=== PATIENT | male | born 1995 | race Caucasian/White ===

== ENCOUNTER 2019-03-28 10:38 | Inpatient (IN) | payer BC ==
[~2019-03-28] VITALS: Ht 182.9 cm; Wt 64.0 kg
[2019-03-28] MEDS ORDERED: IV NS 0.9% 1,000 ML BAG IV ONE (11:30)
--- NOTE | 2019-03-28 11:45 | NUR ---
GENERALIZED BODY ACHE/FEVER/FATIGUE/HEADACHE/LOW BACK PAINX 3 DAYS AFTER COMING BACK FROM [facility]. PT AAOX4, VSS. DENIES CP, SOB, DIZZINESS, N/V/D AT THIS TIME. PT SEEN & EVAL'D BY DR. PROCTOR & WILL CONT TO MONITOR.
[2019-03-28 11:48] LABS: BASOPHILS % (AUTO) 0.3 % (0.0-2.0); HEMATOCRIT 47 % (39-51); HEMOGLOBIN 16.1 g/dL (13.5-17.5); LYMPHOCYTES # (AUTO) 0.6 /CMM (0.8-4.8); LYMPHOCYTES % (AUTO) 7.4 % (20.0-44.0); MEAN CORPUSCULAR HGB CONC 35 g/dl (31.0-36.0); MEAN CORPUSCULAR VOLUME 92 fL (80-96); MONOCYTES # (AUTO) 0.9 /CMM (0.1-1.30); MONOCYTES % (AUTO) 11.2 % (2.0-12.0); NEUTROPHILS # (AUTO) 6.8 /CMM (1.8-8.9); NEUTROPHILS % (AUTO) 81.1 % (43.0-81.0); PLATELET COUNT (AUTO) 141 /CMM (150-450); RED BLOOD CELL COUNT(AUTO) 5.03 MIL/uL (4.5-6.0); WHITE BLOOD COUNT (AUTO) 8.4 K/uL (4.3-11.0)
[2019-03-28 11:55] LABS: CALCIUM, SERUM 8.5 mg/dL (8.5-10.1); CREATININE 1.6 mg/dL (0.6-1.3)
[2019-03-28 12:01] LABS: ALBUMIN 3.6 g/dL (3.4-5.0); BILIRUBIN,DIRECT 0.3 mg/dL (0.0-0.2); BILIRUBIN,TOTAL 2.4 mg/dL (0.2-1.0); TOTAL PROTEIN, SERUM 7.5 g/dL (6.4-8.2)
[2019-03-28] MEDS ORDERED: IBUPROFEN 600 MG TABLET PO ONE ×2 (12:30→12:33)
[2019-03-28] MEDS ORDERED: ACETAMINOPHEN ES 500 MG TABLET PO ONE (12:30)
[2019-03-28] MEDS ORDERED: ACETAMINOPHEN ES 500 MG TABLET ONE (12:33)
--- NOTE | 2019-03-28 12:47 | NUR ---
BED 316-1
--- NOTE | 2019-03-28 13:04 | NUR ---
REPORT GIVEN TO SANDEEP LLOYD FOR CONT OF CARE.
[2019-03-28] MEDS ORDERED: IV NS 0.9% 1,000 ML IV PRN (13:37)
[2019-03-28] MEDS ORDERED: Z GUARD REMEDY 2 OZ OINT TP PRN ×2 (14:00→14:15)
[2019-03-28] MEDS ORDERED: MAG HYDROX/AL HYDROX/SIMETH 30 ML UDC PO PRN ×2 (14:00→14:15)
[2019-03-28] MEDS ORDERED: ACETAMINOPHEN 325 MG TABLET PO PRN (14:00)
[2019-03-28] MEDS ORDERED: MAGNESIUM HYDROXIDE 30 ML UDC PO PRN ×2 (14:00→14:15)
[2019-03-28] MEDS ORDERED: HYDROCODONE/APAP 5/325MG 1 EACH TABLET PO PRN ×2 (14:00→14:15)
[2019-03-28] MEDS ORDERED: ONDANSETRON HCL/PF 4 MG/2 ML VIAL IVP PRN ×2 (14:00→14:15)
--- NOTE | 2019-03-28 14:35 | NUR ---
MS RN NOTES PATIENT ARRIVED UNIT VIA [facility], REPORT RECEIVED FROM JEANMARIE HOPKINS. PATIENT AWAKE, ALERT AND ORIENTED X 4, NO ACUTE DISTRESS. NO C/O PAIN OR DISCOMFORT. PATIENT CALM AND RELAXED. NO CHANGES IN LOC NOTED AT THIS TIME. PATIENT ADMITTED UNDER MEDICAL SUPERVISION OF NAKUL PAEZ NP, AWARE OF PATIENT ARRIVAL. PATIENT ORIENTED TO UNIT, ROOM, STAFF, MEAL TIMES, MENU SYSTEM, PLAN OF CARE AND VERBALIZED UNDERSTANDING. PATIENT AMBULATORY. WILL CONTINUE TO MONITOR. BED LOCKED AND IN LOW POSITION. BILATERAL UPPER SIDE RAILS UP AND LOCKED. CALL LIGHT WITHIN EASY REACH
--- NOTE | 2019-03-28 14:49 | NUR ---
MS RN NOTES US TECH AT BEDSIDE
[2019-03-28] MEDS ORDERED: FEE PK DOSING 1 MIN EA MC ONE (14:59)
[2019-03-28] MEDS ORDERED: PIPERACILLIN /TAZOBACTAM 3.375 G in IV D5W 50 ML IV ONE (15:00)
[2019-03-28] MEDS: IV NS 0.9% 1,000 ML IV PRN (15:55)
[2019-03-28 16:00] VITALS: BP 99/46
[2019-03-28] MEDS ORDERED: VANCOMYCIN 1.5 GM in IV D5W 500 ML IV ONE (16:00)
[2019-03-28] MEDS ORDERED: DOCUSATE SODIUM 100 MG CAPSULE PO SCH (17:00)
[2019-03-28] MEDS: DOCUSATE SODIUM 100 MG CAPSULE PO SCH (17:40)
[2019-03-28 17:47] LABS: APPEARANCE,URINE CLEAR (CLEAR); BILIRUBIN,URINE NEGATIVE (NEGATIVE); BLOOD, URINE NEGATIVE Ery/uL (NEGATIVE); COLOR,URINE ORANGE (YELLOW); KETONES,URINE 1+ (NEGATIVE); LEUKOCYTE ESTERASE ,URINE NEGATIVE (NEGATIVE); NITRITE, URINE NEGATIVE (NEGATIVE); PROTEIN,URINE NEGATIVE (NEGATIVE); UGLUCOSE NEGATIVE (NEGATIVE)
[2019-03-28] MEDS ORDERED: PIPERACILLIN /TAZOBACTAM 3.375 G in IV D5W 50 ML IV SCH ×4 (18:00)
[2019-03-28 18:01] LABS: BACTERIA,URINE None seen /HPF (None Seen); RBC,URINE 0-2 /HPF (0-2); SQUAMOUS EPITHELIAL CELL,UR 0-2 /HPF (None Seen); WBC,URINE 0-2 /HPF (0-3)
--- NOTE | 2019-03-28 18:17 | NUR ---
MS RN NOTES VERIFIED DIET ORDER WITH NAKUL PAEZ NP. GAVE OK FOR PATIENT TO START REGULAR DIET. ORDER NOTED AND CARRIED OUT. DIETARY MADE AWARE. PATIENT MADE AWARE AND VERBALIZED UNDERSTANDING. WILL CONTINUE TO MONITOR
[2019-03-28] MEDS: ACETAMINOPHEN 325 MG TABLET PO PRN (19:03)
--- NOTE | 2019-03-28 19:11 | NUR ---
MS RN NOTES PATIENT NOTED WITH EPISODE OF CHILLS X 1. NO CHANGES IN LOC NOTED. PATIENT CALM AND RELAXED. TEMP TAKEN WITH RESULT OF 98.0 ORAL. NAKUL PAEZ NP MADE AWARE. NO NEW ORDERS GIVEN AT THIS TIME. WILL CONTINUE TO MONITOR
--- NOTE | 2019-03-28 19:13 | NUR ---
MS NOTES PATIENT RESTING INSIDE ROOM. AWAKE, ALERT AND ORIENTED X 4, NO ACUTE DISTRESS. NO C/O PAIN. PATIENT KEPT CLEAN, DRY AND COMFORTABLE. PROVIDED WITH CALM, SAFE, HAZARD-FREE ENVIRONMENT. WILL ENDORSE TO INCOMING SHIFT FOR DOLORES. BED LOCKED AND IN LOW POSITION. BILATERAL UPPER SIDE RAILS UP AND LOCKED. CALL LIGHT WITHIN EASY REACH
--- NOTE | 2019-03-28 19:35 | NUR ---
MS RN RECEIVE PT IN BED A/O X 3, STABLE, RESPIRATIONS EVEN AND UNLABORED, SAFETY MEASURES IN PLACE. WILL CONTINUE TO MONITOR
[2019-03-28 20:00] VITALS: BP 129/62
--- NOTE | 2019-03-28 20:00 | NUR ---
NOTED TEMPERATURE OF 101.0 COOLING MEASURES PROVIDED WILL CONT TO MONITOR
[2019-03-28] MEDS ORDERED: PIPERACILLIN /TAZOBACTAM 3.375 G in IV D5W 100 ML IV SCH (22:00)
[2019-03-29] MEDS: IV NS 0.9% 1,000 ML IV PRN ×3 (01:08→19:35)
[2019-03-29] MEDS: ACETAMINOPHEN 325 MG TABLET PO PRN ×3 (01:09→23:32)
[2019-03-29] MEDS ORDERED: VANCOMYCIN 1.25 GM in IV D5W 500 ML IV SCH (02:00)
--- NOTE | 2019-03-29 06:33 | NUR ---
MS RN ASLEEP AND EASILY AWAKEN, RESPIRATIONS EVEN AND UNLABORED. STABLE, SLEPT WELL THROUGHOUT THE NIGHT. KEPT CLEAN AND DRY AND COMFORTABLE. NEEDS ATTENDED AND ANTICIPATED. NURSING CARE RENDERED, SAFETY MEASURES AT ALL TIMES. ENDORSE TO THE NEXT SHIFT.
--- NOTE | 2019-03-29 06:36 | NUR ---
TEMPERATURE 97.4 AT THIS TIME
--- NOTE | 2019-03-29 07:17 | NUR ---
MS RN OPENING NOTES RECEIVED PATIENT IN BED RESTING, BREATHING ON ROOM AIR. BREATHING IS EVEN AND UNLABORED. PATIENT IN NO ACUTE DISTRESS. NO SOB NOTED. PATIENT COMPLAINS OF NO PAIN AT THIS TIME. PATIENT ABLE TO VERBALIZE CONCERNS. PATIENTS BROTHER AT THE BEDSIDE. PATIENT BED IS LOCKED AND IN LOWEST POSITION. CALL LIGHT WITHIN REACH. WILL CONTINUE TO MONITOR.
[2019-03-29] MEDS ORDERED: PANTOPRAZOLE 40 MG TABLET.DR PO SCH (07:30)
[2019-03-29] MEDS: PANTOPRAZOLE 40 MG TABLET.DR PO SCH (07:52)
[2019-03-29 08:00] VITALS: BP 99/55
[2019-03-29] MEDS: DOCUSATE SODIUM 100 MG CAPSULE PO SCH ×2 (08:00→16:54)
[2019-03-29] MEDS ORDERED: IV NS 0.9% 1,000 ML IV STA (10:51)
[2019-03-29 11:06] LABS: BASOPHILS % (AUTO) 0.3 % (0.0-2.0); EOSINOPHILS % (AUTO) 0.3 % (0.0-6.0); HEMATOCRIT 40 % (39-51); HEMOGLOBIN 13.8 g/dL (13.5-17.5); LYMPHOCYTES # (AUTO) 0.3 /CMM (0.8-4.8); LYMPHOCYTES % (AUTO) 5.6 % (20.0-44.0); MEAN CORPUSCULAR HGB CONC 34 g/dl (31.0-36.0); MEAN CORPUSCULAR VOLUME 92 fL (80-96); MONOCYTES # (AUTO) 0.4 /CMM (0.1-1.30); MONOCYTES % (AUTO) 7.7 % (2.0-12.0); NEUTROPHILS # (AUTO) 4.9 /CMM (1.8-8.9); NEUTROPHILS % (AUTO) 86.1 % (43.0-81.0); PLATELET COUNT (AUTO) 101 /CMM (150-450); RED BLOOD CELL COUNT(AUTO) 4.37 MIL/uL (4.5-6.0); WHITE BLOOD COUNT (AUTO) 5.7 K/uL (4.3-11.0)
[2019-03-29 11:17] LABS: CALCIUM, SERUM 7.8 mg/dL (8.5-10.1); CARBON DIOXIDE 29 mmol/L (21-32); CHLORIDE 105 mmol/L (98-107); CREATININE 1.6 mg/dL (0.6-1.3); GLUCOSE 104 mg/dL (74-106); POTASSIUM 4.1 mmol/L (3.5-5.1); SODIUM SERUM 140 mmol/L (136-145); UREA NITROGEN, BLOOD 14 mg/dL (7-18)
[2019-03-29 11:22] LABS: ALANINE AMINOTRANSFERASE 23 U/L (12-78); ALBUMIN 2.7 g/dL (3.4-5.0); ALKALINE PHOSPHATASE 39 U/L (46-116); ASPARTATE AMINOTRANSFERASE 17 U/L (15-37); BILIRUBIN,TOTAL 1.7 mg/dL (0.2-1.0); PHOSPHORUS 3.3 mg/dL (2.5-4.9); TOTAL PROTEIN, SERUM 5.9 g/dL (6.4-8.2)
[2019-03-29] MEDS: AZITHROMYCIN 250 MG TABLET PO SCH (11:22)
[2019-03-29 11:25] LABS: BILIRUBIN,DIRECT 0.3 mg/dL (0.0-0.2); BILIRUBIN,TOTAL 1.7 mg/dL (0.2-1.0)
[2019-03-29 11:30] LABS: CHOLESTEROL 87 mg/dL (<200); HDL CHOLESTEROL 30 mg/dL (40-60); LDL 47 mg/dL (0-99); THYROID STIMULATING HORMONE 1.474 uIU/mL (0.358-3.74); TRIGLYCERIDES 56 mg/dL (30-150)
--- NOTE | 2019-03-29 12:00 | NUR ---
MS RN NOTE PATIENT LAB LEVEL REPORTED LACTIC ACID 2.5. NAKUL PAEZ PETROGRAPHY TEACHER MADE AWARE. WILL FOLLOW UP WITH NEW ORDERS. PATIENT RECEIVING IV NS 0.9% FLUIDS. PATIENT IN NO ACUTE DISTRESS. WILL CONTINUE TO MONITOR.
--- NOTE | 2019-03-29 14:00 | NUR ---
MS RN NOTE PATIENT LACTIC ACID IS 1.8. MD MADE AWARE. PATIENT IN NO ACUTE DISTRESS. WILL CONTINUE TO MONITOR.
[2019-03-29 16:00] VITALS: BP 110/60
--- NOTE | 2019-03-29 18:55 | NUR ---
MS RN CLOSING NOTE PATIENT IN BED RESTING. PATIENT IN NO ACUTE DISTRESS. PATIENT BREATHING ON ROOM AIR. NO SOB NOTED. PATIENT BREATHING EVEN AND UNLABORED. PATIENT COMPLAINS OF NO PAIN AT THIS TIME. IV INTACT, PATIENT CONTINUED ON IV NS 0.9% FLUIDS. PATIENT ABLE TO VERBALIZE NEEDS AND CONCERNS. PATIENT NEEDS ADDRESSED. ALL NURSING NEEDS MET. PATIENT KEPT CLEAN, DRY, AND COMFORTABLE. PATIENT BED LOCKED AND IN LOWEST POSITION. CALL LIGHT WITHIN REACH. WILL ENDORSE CARE TO PM SHIFT FOR DOLORES.
--- NOTE | 2019-03-29 18:57 | NUR ---
RN opening notes Received Pt from morning nurse. Pt is alert and oriented X4. Pt is laying in bed comfortably watching TV. Pt's family at the bedside. Respiration is normal. NO SOB. No nausea or vomiting. Pt denies any pain or discomfort at this time. Pt has 2 IV sites: RAC# 20g is clean, intact and patent, SL and LFA #20g is clean, intact, patent and infusing well NS @ 150ml/hr. Safety precautions is maintained. Instructed Pt to eat as tolerated. Instructed Pt to call for assistance. Bed at low position, brakes on, bedside rails upX2 and call light is within reach. Will continue to monitor and assist all needs.
[2019-03-29 20:00] VITALS: BP 106/59
[2019-03-29 20:18] VITALS: BP 106/59
--- NOTE | 2019-03-30 | NUR ---
RN medsurg notes Pt is sleeping in bed comfortably. Awaken easily. NO SOB. No S/S of distress noted. Pt's mom at the bed side. Instructed to call fo assistance. Will continue to monitor.
[2019-03-30 05:47] VITALS: BP 105/56
--- NOTE | 2019-03-30 05:49 | NUR ---
policy loan calculator notes Pt is alert and oriented X4. Pt is sitting in bed comfortably. Discussed and informed Pt's mother about POC. Pt's mother states "I want to move my son to different hospital and nothing has been done here." Explained to Pt's mother about Pt's condition, labs, meds and POC. Pt is complaining of headache. Pt's mom and Pt refused to receive medications for headache. Informed Pt's about benefits of taking medication and side effects. Pt and Pt's mom verbalize understanding and still refusing. VS as follows: BP 105/56, PULSE 63, RESP 18, TEMP 98.9, O2 SAT 99%. Will continue to monitor. Addendum: 03/30/19 at 0718 by SHAINA HANEY RN SANDEEP medsurg notes Pt is alert and oriented X4. Pt is sitting in bed comfortably. Discussed and informed Pt's mother about POC. Pt's mother states "I want to move my son to different hospital and nothing has been done here." Explained to Pt's mother about Pt's condition, labs, meds and POC. Pt is complaining of headache. Pt's mom and Pt refused to receive medications for headache. Informed Pt's about benefits of taking medication and side effects. Pt and Pt's mom verbalize understanding and still refusing. VS as follows: BP 105/56, PULSE 63, RESP 18, TEMP 98.9, O2 SAT 99%. Will continue to monitor.
[2019-03-30 06:43] LABS: BASOPHILS % (AUTO) 0.3 % (0.0-2.0); EOSINOPHILS % (AUTO) 2.4 % (0.0-6.0); HEMATOCRIT 39 % (39-51); HEMOGLOBIN 13.6 g/dL (13.5-17.5); LYMPHOCYTES # (AUTO) 0.6 /CMM (0.8-4.8); LYMPHOCYTES % (AUTO) 14.9 % (20.0-44.0); MEAN CORPUSCULAR HGB CONC 35 g/dl (31.0-36.0); MEAN CORPUSCULAR VOLUME 92 fL (80-96); MONOCYTES # (AUTO) 0.5 /CMM (0.1-1.30); MONOCYTES % (AUTO) 13.1 % (2.0-12.0); NEUTROPHILS # (AUTO) 2.6 /CMM (1.8-8.9); NEUTROPHILS % (AUTO) 69.3 % (43.0-81.0); PLATELET COUNT (AUTO) 113 /CMM (150-450); RED BLOOD CELL COUNT(AUTO) 4.25 MIL/uL (4.5-6.0); WHITE BLOOD COUNT (AUTO) 3.8 K/uL (4.3-11.0)
[2019-03-30 06:50] LABS: CREATININE 1.2 mg/dL (0.6-1.3); POTASSIUM 4.3 mmol/L (3.5-5.1)
[2019-03-30 06:55] LABS: ALBUMIN 2.5 g/dL (3.4-5.0); BILIRUBIN,TOTAL 0.7 mg/dL (0.2-1.0); MAGNESIUM 1.9 mg/dL (1.8-2.4); PHOSPHORUS 2.3 mg/dL (2.5-4.9); TOTAL PROTEIN, SERUM 5.5 g/dL (6.4-8.2)
--- NOTE | 2019-03-30 07:00 | NUR ---
RN medsurg closing notes Pt is alert and oriented x4. Pt is laying in bed comfortably. NO SOB. NO S/S of distress noted. IV sites at RAC is intact, patent, SL. IV sites at LFA is intact, patent and infusing well NS 150 ml/hr. Pain medication has been given. Skin assessment done and picture taken placed in Pt's chart. All needs met. Instructed to call. Safety precautions is maintained. Bed at low position and call light is within reach. Will endorse to morning nurse for DOLORES.
[2019-03-30] MEDS: PANTOPRAZOLE 40 MG TABLET.DR PO SCH (07:30)
--- NOTE | 2019-03-30 07:33 | NUR ---
MS RN OPENING NOTES PATIENT IN BED RESTING COMFORTABLY. PATIENT BREATHING ON ROOM AIR.PATIENT BREATHING IS EVEN AND UNLABORED. NO SOB NOTED. ALERT AND ORIENTEDX4. MOTHER AT THE BEDSIDE. PATIENT COMPLAINS OF NO PAIN AT THIS TIME. SAFETY PRECAUTIONS IN PLACE. BED IS LOCKED AND IN LOWEST POSITION. CALL LIGHT WITHIN REACH. WILL CONTINUE TO MONITOR.
[2019-03-30] MEDS: IV NS 0.9% 1,000 ML IV PRN (08:19)
[2019-03-30] MEDS: DOCUSATE SODIUM 100 MG CAPSULE PO SCH (08:20)
--- NOTE | 2019-03-30 08:20 | NUR ---
MS RN NOTES PATIENT REFUSED PROTONIX, COLACE, AND IV NS 0.9% FLUIDS THIS MORNING. PROVIDED RISKS VS BENEFITS. OFFERED MULTIPLE TIMES, PATIENT CONTINUE TO REFUSE. PATIENT IN NO ACUTE DISTRESS. WILL CONTINUE TO MONITOR.
[2019-03-30 09:05] VITALS: BP 112/64
[2019-03-30] MEDS ORDERED: ONDA4TAB5 PO (10:25)
[2019-03-30] MEDS: AZITHROMYCIN 250 MG TABLET PO SCH (11:00)
--- NOTE | 2019-03-30 11:45 | NUR ---
MS [employer] COORDINATOR NOTE PATIENT STABLE AND READY FOR DISCHARGE. PATIENT WAS KEPT CLEAN, DRY, AND COMFORTABLE. PATIENT VERBALIZED NEEDS. NEEDS ADDRESSED. PATIENT IN NO PAIN AT THIS TIME. PATIENT VITAL SIGNS WNL. DC INSTRUCTIONS PROVIDED TO PATIENT AND MOTHER. PATIENT AND MOTHER VERBALIZED UNDERSTANDING. PATIENT SIGNED BELONGINGS LIST AND IN CHART. PATIENT BELONGINGS WITH BROTHER AND PATIENT. DC PACKET GIVEN TO PATIENT.SKIN ASSESSED, NO NEW SKIN BREAKDOWN NOTED. ID BAND REMOVED. IV REMOVED. ALL NURSING NEEDS MET. PATIENT GOING BACK HOME BY UBER WITH MOTHER. MD AWARE OF DISCHARGE.
[2019-03-30] MEDS ORDERED: K PHOS NEUTRAL 250 MG TABLET PO ONE (12:30)
== END 2019-03-30 11:40 | disposition home or self-care (01) | DRG 865 ==
LOC: ER 10:45 → TELE 14:12 → MED 14:18
PROVIDERS: ADMIT Registered Nurse; ATTEND Registered Nurse
DX: B34.9 Viral infection, unspecified (principal); N17.0 Acute kidney failure with tubular necrosis; E80.6 Other disorders of bilirubin metabolism; D69.6 Thrombocytopenia, unspecified; E86.0 Dehydration; M79.10 Myalgia, unspecified site
CPT/HCPCS: 36415; 71045-TC; 76700-TC; 80048-TC; 80053-TC; 80061-TC; 80076-TC; 81000-TC; 82247-TC; 82248-TC; 82550-TC; 83605-TC; 83690-TC; 83735-TC; 84100-TC; 84443-TC; 85025-TC; 87040-TC; 87081-TC; 87086-TC; 87207-TC; 87400; 87806; G0378; J2405; J2543; J3370; J7030; J7060